=== PATIENT | female | born 1980 | race Caucasian/White ===

== ENCOUNTER → 2017-05-12 | Outpatient (CLI) | payer OTHER | LOC: OD 16:08 | PROVIDERS: ATTEND Otolaryngology | DX: J30.9 Allergic rhinitis, unspecified (principal) | CPT/HCPCS: 36415; 82785 ==

== ENCOUNTER → 2017-05-19 | Outpatient (CLI) | payer OTHER ==
[~2017-05-19] MED LIST: DIAZEPAM 5 MG TABLET ONE
--- NOTE | 2017-05-19 12:52 | RADIOLOGY REPORT (SQ) ---
EXAM DESCRIPTION: MRI HEAD COMBO COMPLETED DATE/TIME: 05/19/2017 12:24 pm REASON FOR STUDY: OTHER SPEC DIS OF EUSTACHIAN TUBE, BILATERAL H69.83 OTHER SPECIFIED DISORDERS OF EUSTACHIAN TUBE, BILATER COMPARISON: None. TECHNIQUE: Multiplanar imaging includes noncontrasted T1, T2, FLAIR, diffusion with ADC map and post gadolinium contrast T1 sequences. Images stored on PACS. Additional thin section imaging through the internal auditory canals and inner ear structures was per formed, including axial T2, axial and coronal T1 precontrast and fat-sat postcontrast images. CONTRAST TYPE AND DOSE: 20 mL Multihance. RENAL FUNCTION: GFR > 60. LIMITATIONS: None. FINDINGS: On the right side, a 2.5 mm avidly enhancing nodule is present in the internal auditory ca nal, likely a small acoustic neuroma. This is best shown on axial thin section series 14, image 9. On the left side, a 2.7 x 2 cm cerebellopontine angle mass is present with enhancing tissue filling t he left internal auditory canal. This has mild local mass effect, and flattening the left lateral po ns, best shown on axial series 14, images 6-12. The patient has a left frontal meningioma along the anterior falx, 10 x 8 mm in size. There is a lef t perisylvian region frontotemporal meningioma 1.5 x 1 cm in size. Along the left posterior falx, a 3.2 by 3 cm meningioma is present, and a 2.4 x 2 cm meningioma is present. 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 ANATOMY: Normal vascular flow voids. Pituitary fossa normal. CSF SPACES: Normal in size and contour. No hemorrhage. CEREBRUM: Cerebral hemispheres are unremarkable. No MR evidence of acute ischemic change, acute intr acranial hemorrhage, mass effect, or midline shift. Benign basal ganglia perivascular spaces right g reater than left POSTERIOR FOSSA: As above. No cerebellar hemorrhage. No midline shift. Normal flow signal in the d ural venous sinuses. DIFFUSION IMAGING: Negative for acute or subacute infarction. ORBITS: No masses. Globes normal. PARANASAL SINUSES: No fluid levels. Mucosa normal. OTHER: No other significant finding. 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 TECHNICAL DOCUMENTATION: JOB ID: [id number] [employer]- All Rights Reserved
== END ==
LOC: RAD 10:13
PROVIDERS: ATTEND Otolaryngology
DX: D32.0 Benign neoplasm of cerebral meninges (principal); H69.83 Other specified disorders of Eustachian tube, bilateral
CPT/HCPCS: 70553; A9577